=== PATIENT | female | born 1950 ===

== ENCOUNTER 2018-04-03 09:57 | Inpatient (IN) | payer MEDICARE ==
[2018-04-03 10:07] VITALS: BMI 24.1
[2018-04-03] MEDS ORDERED: Sodium Chloride 0.9% 1,000 ML IV STA (10:25)
--- NOTE | 2018-04-03 10:43 | ED PDOC ---
Arrival/HPI - General Historian: Patient - History of Present Illness Narrative History of Present Illness (Text): 04/03/18 10:28 67yo female with pmhx of hypertension and Asthma present with 3days history of right sided abdominal pain that is worse on the RLQ. States the pain became worse overnight. Reports associated nonbloody diarrhea. the last episode was this morning with nausea. Triage note noted dizziness, but patient states she is not dizzy at this time. states she came to ED for the pain. Her last colonoscopy was 3years ago and it was normal at that time. she denies vomiting, chest pain, SOB, diaphoresis, melena, hematemesis, urinary symptoms, headache, focal wea kness, any other complaint <Reji Owen A - Last Filed: 04/03/18 14:04> <Red Vo - Last Filed: 04/05/18 20:59> - General Chief Complaint: Abdominal Pain Time Seen by Provider: 04/03/18 10:25 Past Medical History - Provider Review Nursing Documentation Reviewed: Yes - Cardiac Hx Hypertension: Yes - Pulmonary Hx Asthma: Yes - Psychiatric Hx Substance Use: No - Anesthesia Hx Anesthesia: No Hx Anesthesia Reactions: No Hx Malignant Hyperthermia: No <Reji Owen A - Last Filed: 04/03/18 14:04> Family/Social History - Physician Review Nursing Documentation Reviewed: Yes Family/Social History: Unknown Family HX Smoking Status: Never Smoked Hx Alcohol Use: No Hx Substance Use: No <Reji Owen A - Last Filed: 04/03/18 14:04> Allergies/Home Meds <Reji Owen A - Last Filed: 04/03/18 14:04> <Red Vo - Last Filed: 04/05/18 20:59> Allergies/Adverse Reactions: Allergies Penicillins Allergy (Verified 04/04/18 20:45) SWELLING Review of Systems - Physician Review All systems were reviewed & negative as marked: Yes - Review of Systems Constitutional: Normal Eyes: Normal ENT: Normal Respiratory: Normal Cardiovascular: Normal Gastrointestinal: Abdominal Pain, Diarrhea, Nausea. absent: Constipation, Vomiting, Hematochezia, Hematemesis Genitourinary Female: Normal Musculoskeletal: Normal Skin: Normal Neurological: Normal Endocrine: Normal Hemo/Lymphatic: Normal Psychiatric: Normal <Reji Owen A - Last Filed: 04/03/18 14:04> Physical Exam Vital Signs Reviewed: Yes Vital Signs Temp Pulse Resp BP Pulse Ox 04/03/18 10:06 98.2 F 89 18 145/79 98 Temperature: Afebrile Blood Pressure: Normal Pulse: Regular Respiratory Rate: Normal Appearance: Positive for: Well-Appearing, Non-Toxic, Comfortable Pain Distress: None Mental Status: Positive for: Alert and Oriented X 3 - Systems Exam Head: Present: Atraumatic, Normocephalic Pupils: Present: PERRL Extroacular Muscles: Present: EOMI Conjunctiva: Present: Normal Mouth: Present: Moist Mucous Membranes Neck: Present: Normal Range of Motion Respiratory/Chest: Present: Clear to Auscultation, Good Air Exchange. No: R espiratory Distress, Accessory Muscle Use Cardiovascular: Present: Regular Rate and Rhythm, Normal S1, S2. No: Murmurs Abdomen: Present: Tenderness (RLQ), Normal Bowel Sounds, Guarding (Voluntary), Other (soft). No: Distention, Peritoneal Signs, Rebound, McBurney's Point Tender, Rovsing's Sign Present Back: Present: Normal Inspection Upper Extremity: Present: Normal Inspection. No: Cyanosis, Edema Lower Extremity: Present: Normal Inspection. No: Edema Neurological: Present: GCS=15, CN II-XII Intact, Speech Normal Skin: Present: Warm, Dry, Normal Color. No: Rashes Psychiatric: Present: Alert, Oriented x 3, Normal Insight, Normal Concentration <Diru,Happiness A - Last Filed: 04/03/18 14:04> Vital Signs Temp Pulse Resp BP Pulse Ox 04/03/18 15:01 82 18 147/66 98 04/03/18 14:36 18 04/03/18 12:23 98.0 F 99 H 18 139/83 99 04/03/18 10:06 98.2 F 89 18 145/79 98 <Red Vo - Last Filed: 04/05/18 20:59> Medical Decision Making ED Course and Treatment: 04/03/18 10:51 67yo female in ED with 3days history of Right sided abdominal pain with diarrhea and nausea. PT have RLQ tenderness on exam. Labs and CT will be ordered to r/o Obstruction Vs Colitis Vs diverticulitis Labs Abd/Plevis CT Briefran, Pepcid, 1L Ns EKG will reassess EKG NSR @ 85bpm. with normal interval and normal axis 04/03/18 14:04 Pt remain comfortable in ED. She was hydrated. Labs was all wnl. abdominal/Pelvic CT Early/incomplete small bowel obstruction suspected. dilated loops of small bowel identified in the pelvis beyond this the distal and terminal ileum are normal luminal caliber. Pt will be admitted secondary to the CT finding. Case was DW Dr. Nichole and she accepted pt to her service. requested Drs. Granados and Kristen consult Pt was placed on NPO. Result and plan was dW the pt and she agreed Case was DW the surgical territory manager Zabrina. she saw pt in ED. 04/03/18 14:07 - RAD Interpretation Radiology Orders: 04/03/18 10:26 ABD & PELVIS IV CONTRAST ONLY [CT] Stat <Diru,Happiness A - Last Filed: 04/03/18 14:04> - Lab Interpretations Microbiology Results: Microbiology Results 04/03/18 10:45 Urine,Clean Catch Urine Culture - Final No Growth (<1,000 CFU/ML) Lab Results: 04/03/18 10:45 04/03/18 11:30 Lab Results 04/03/18 11:30: Sodium 144, Potassium 3.9, Chloride 111 H, Carbon Dioxide 23, Anion Gap 13, BUN 20, Creatinine 0.6 L, Est GFR ( Amer) > 60, Est GFR (Non-Af Amer) > 60, Random Glucose 117 H, Calcium 9.1, Total Bilirubin 0.4, AST 18, ALT 24, Alkaline Phosphatase 71, Lactate Dehydrogenase 412, Total Creatine Kinase 44, Troponin I < 0.01, Total Protein 7.2, Albumin 4.0, Globulin 3.2, Albumin/Globulin Ratio 1.2, Amylase 70, Lipase 72 04/03/18 10:45: Urine Color Yellow, Urine Appearance Clear, Urine pH 6.0, Ur Specific [place] >= 1.030, Urine Protein Negative, Urine Glucose (UA) Negative, Urine Ketones Negative, Urine Blood Trace-intact H, Urine Nitrate Negative, Urine Bilirubin Negative, Urine Urobilinogen 0.2, Ur Leukocyte Esterase Small H, Urine RBC 0 - 2, Urine WBC 5 - 10, Ur Epithelial Cells 1 - 3, Urine Bacteria Small 04/03/18 10:45: PT 11.9, INR 1.03, APTT 26.7 04/03/18 10:45: WBC 8.4, RBC 4.83, Hgb 14.5, Hct 44.3, MCV 91.7, MCH 30.0, MCHC 32.7, RDW 13.4, Plt Count 212, MPV 12.8 H, Gran % 86.2 H, Lymph % (Auto) 7.7 L, [place] % (Auto) 4.4, Eos % (Auto) 1.7, Baso % (Auto) 0.0, Gran # 7.25 H, Lymph # (Auto) 0.7 L, [place] # (Auto) 0.4, Eos # (Auto) 0.1, Baso # (Auto) 0.00 - RAD Interpretation Radiology Orders: 04/03/18 10:26 ABD & PELVIS IV CONTRAST ONLY [CT] Stat - Medication Orders Current Medication Orders: Discontinued Medications Acetaminophen (Tylenol 325mg Tab) 650 mg PO Q6H PRN PRN Reason: Headache Last Admin: 04/03/18 16:47 Dose: 650 mg [facility] Pain/Vitals Document 04/03/18 16:47 MV (Rec: 04/03/18 16:47 MV [id number]) Pain Reassessment Is This A Pain ReAssessment? No Re-Assess: [facility] Pain/Vitals Document 04/03/18 17:47 SG (Rec: 04/03/18 20:12 SG [id number]) Pain Reassessment Is This A Pain ReAssessment? Yes Sleep Is patient sleeping during reassessment? No Presence of Pain Presence of Pain No Famotidine (Pepcid) 20 mg IVP STAT STA Stop: 04/03/18 10:26 Last Admin: 04/03/18 10:44 Dose: 20 mg IVP Administration Document 04/03/18 10:44 EQ (Rec: 04/03/18 10:44 EQ [id number]) Charges for Administration # of IVP Administrations 1 Heparin Sodium (Porcine) (Heparin) 5,000 units SC Q8 ZUNILDA; Protocol Last Admin: 04/05/18 15:33 Dose: 5,000 units Subcutaneous Administrations Document 04/05/18 15:33 GGM (Rec: 04/05/18 15:33 GGM [id number]) Injection Site MAR Injection Site Right Arm Charges for Administration # of Subcutaneous Administrations 1 Sodium Chloride (Sodium Chloride 0.9%) 1,000 mls @ 100 mls/hr IV .Q10H STA Stop: 04/03/18 20:24 Last Admin: 04/03/18 10:43 Dose: 100 mls/hr eMAR Start Stop Document 04/03/18 10:43 EQ (Rec: 04/03/18 10:43 EQ [id number]) Intravenous Solution Start Date 04/03/18 Start Time 10:43 Sodium Chloride (Sodium Chloride 0.9%) 1,000 mls @ 100 mls/hr IV .Q10H ZUNILDA Last Admin: 04/03/18 13:53 Dose: 100 mls/hr eMAR Start Stop Document 04/03/18 13:53 EQ (Rec: 04/03/18 13:53 EQ [id number]) Intravenous Solution Start Date 04/03/18 Start Time 13:53 Sodium Chloride (Sodium Chloride 0.9%) 1,000 mls @ 125 mls/hr IV .Q8H ZUNILDA Last Admin: 04/03/18 13:56 Dose: 125 mls/hr eMAR Start Stop Document 04/03/18 13:56 EQ (Rec: 04/03/18 13:56 EQ [id number]) Intravenous Solution Start Date 04/03/18 Start Time 13:56 Sodium Chloride (Sodium Chloride 0.9%) 1,000 mls @ 100 mls/hr IV .Q10H ZUNILDA Last Admin: 04/05/18 05:52 Dose: 100 mls/hr eMAR Start Stop Document 04/05/18 05:52 KTB (Rec: 04/05/18 05:53 KTB [id number]) Intravenous Solution Start Date 04/05/18 Start Time 05:53 Ciprofloxacin (Cipro 200mg/100ml D5w) 100 mls @ 67 mls/hr IVPB Q12 ZUNILDA; Protocol Stop: 04/03/18 23:30 Last Admin: 04/03/18 21:47 Dose: 67 mls/hr eMAR Start Stop Document 04/03/18 21:47 SG (Rec: 04/03/18 21:47 SG [id number]) Intravenous Solution Start Date 04/03/18 Start Time 21:47 End Date 04/03/18 End time 23:17 Total Infusion Time 90 Metronidazole (Flagyl) 500 mg in 100 mls @ 100 mls/hr IVPB Q8 ZUNILDA; Protocol Last Admin: 04/05/18 15:32 Dose: 100 mls/hr eMAR Start Stop Document 04/05/18 15:32 GG (Rec: 04/05/18 15:33 [id number]) Intravenous Solution Start Date 04/05/18 Start Time 15:32 End Date 04/05/18 End time 16:32 Total Infusion Time 60 Lactulose (Enulose) 30 gm PO ONCE ONE Stop: 04/05/18 11:03 Last Admin: 04/05/18 11:22 Dose: 30 gm Losartan Potassium (Cozaar) 100 mg PO DAILY [facility] Last Admin: 04/04/18 09:37 Dose: Not Given Non-Admin Reason: Pt wants to take at night Losartan Potassium (Cozaar) 100 mg PO DAILY [facility] Last Admin: 04/05/18 10:07 Dose: Not Given Non-Admin Reason: Patient Refused Meclizine HCl (Antivert) 12.5 mg PO Q8 [facility] Last Admin: 04/05/18 15:32 Dose: 12.5 mg Morphine Sulfate (Morphine) 4 mg IVP Q4H PRN PRN Reason: Pain, moderate (4-7) Last Admin: 04/04/18 09:38 Dose: 4 mg ADALGISA Pain Assessment Document 04/04/18 09:38 GG (Rec: 04/04/18 09:46 [id number]) Pain Reassessment Is this a pain reassessment? No Presence of Pain Presence of Pain Yes Pain Scale Used Protocol: PSCALES Pain Scale Used Numeric Location Pain Location Body Site Abdomen Description Intensity of Pain at present 7 Pain Behavior Grasping Site Facial Grimacing Alleviating Factors/Management Medication Techniques IVP Administration Document 04/04/18 09:38 GG (Rec: 04/04/18 09:46 [id number]) Charges for Administration # of IVP Administrations 1 Re-Assess: ADALGISA Pain Assessment Document 04/04/18 10:38 GG (Rec: 04/04/18 12:45 GG JENN) Pain Reassessment Is this a pain reassessment? Yes Sleep Is patient sleeping during reassessment? Yes Nitroglycerin (Nitro-Bid 2% Oint) 1 ea TOP Q4 PRN PRN Reason: Hypertension Ondansetron HCl (Zofran Inj) 4 mg IVP STAT STA Stop: 04/03/18 10:26 Last Admin: 04/03/18 10:44 Dose: 4 mg IVP Administration Document 04/03/18 10:44 EQ (Rec: 04/03/18 10:44 EQ [id number]) Charges for Administration # of IVP Administrations 1 Ondansetron HCl (Zofran Inj) 4 mg IVP Q4H PRN PRN Reason: Nausea/Vomiting Last Admin: 04/03/18 18:11 Dose: 4 mg IVP Administration Document 04/03/18 18:11 MV (Rec: 04/03/18 18:11 MV [id number]) Charges for Administration # of IVP Administrations 1 Ondansetron HCl (Zofran Inj) 4 mg IVP Q6H PRN PRN Reason: Nausea/Vomiting Last Admin: 04/04/18 16:23 Dose: 4 mg IVP Administration Document 04/04/18 16:23 GGM (Rec: 04/04/18 16:23 GGM [id number]) Charges for Administration # of IVP Administrations 1 Ondansetron HCl (Zofran Inj) 4 mg IVP Q6H PRN PRN Reason: Nausea/Vomiting Pantoprazole Sodium (Protonix Inj) 40 mg IVP DAILY [facility] Last Admin: 04/05/18 09:54 Dose: 40 mg IVP Administration Document 04/05/18 09:54 GGM (Rec: 04/05/18 09:57 GGM [id number]) Charges for Administration # of IVP Administrations 1 Potassium Chloride (Potassium Chloride Oral Soln) 20 meq PO STAT STA Stop: 04/04/18 12:26 Last Admin: 04/04/18 13:08 Dose: 20 meq Potassium Chloride (K-Dur 20 Meq Er Tab) 40 meq PO ONCE ONE Stop: 04/04/18 15:16 Last Admin: 04/04/18 16:24 Dose: 40 meq <Red Vo - Last Filed: 04/05/18 20:59> - PA / RESIDENT MEDICAL OFFICER / Resident Statement / has reviewed & agrees with the documentation as recorded. <Red Vo - Last Filed: 04/05/18 20:59> Disposition/Present on Arrival - Present on Arrival Any Indicators Present on Arrival: No History of DVT/PE: No History of Uncontrolled Diabetes: No Urinary Catheter: No History of Decub. Ulcer: No History Surgical Site Infection Following: None - Disposition Have Diagnosis and Disposition been Completed?: Yes Disposition Time: 13:15 Patient Plan: Admission <Reji Owen - Last Filed: 04/03/18 14:04> <Red Vo - Last Filed: 04/05/18 20:59> - Disposition Diagnosis: Small bowel obstruction Disposition: HOSPITALIZED Condition: STABLE
[2018-04-03 11:05] LABS: EOS # 0.1 (0.0-0.7); EOS % 1.7 % (1.5-5.0); GRAN # 7.25 (1.4-6.5); GRAN % 86.2 % (50.0-68.0); HEMOGLOBIN 14.5 g/dL (12.0-16.0); LYMPH # 0.7 (1.2-3.4); LYMPH % 7.7 % (22.0-35.0); MEAN CELL VOLUME 91.7 fl (80.0-105.0); MEAN CORPUSCULAR HGB CONC 32.7 g/dl (31.0-37.0); MEAN PLATELET VOLUME 12.8 fl (7.0-11.0); MONO # 0.4 (0.1-0.6); MONO % 4.4 % (1.0-6.0); RBC 4.83 10^6/uL (3.5-6.1); RED CELL DISTRIBUTION WIDTH 13.4 % (11.5-14.5); URINE BILIRUBIN NEGATIVE (NEGATIVE); URINE BLOOD TRACE-INTACT (NEGATIVE); URINE GLUCOSE (UA) NEGATIVE (NEGATIVE); URINE LEUKOCYTE ESTERASE SMALL Leu/uL (NEGATIVE); URINE PROTEIN NEGATIVE mg/dL (<30 mg/dL); URINE UROBILINOGEN 0.2 E.U./dL (<1 E.U./dL); WHITE BLOOD COUNT 8.4 10^3/ul (4.5-11.0)
[2018-04-03 11:06] LABS: URINE APPEARANCE CLEAR (CLEAR); URINE COLOR YELLOW (YELLOW)
[2018-04-03 11:11] LABS: INR 1.03; PARTIAL THROMBOPLASTIN TIME 26.7 Seconds (25.1-36.5); PROTHROMBIN TIME 11.9 SECONDS (9.4-12.5); URINE RBC 0 - 2 /hpf (0-2)
[2018-04-03 11:12] LABS: URINE BACTERIA SMALL (NEG)
[2018-04-03 11:53] LABS: ALB/GLOB RATIO 1.2 (1.1-1.8); ALT/SGPT 24 U/L (7-56); AMYLASE 70 U/L (35-125); AST/SGOT 18 U/L (14-36); BLOOD UREA NITROGEN 20 mg/dL (7-21); CALCIUM 9.1 mg/dL (8.4-10.5); GFR NON-AFRICAN AMERICAN > 60; LIPASE 72 U/L (23-300)
[2018-04-03] MEDS ORDERED: Iohexol 350 MG/100 ML VIAL ONE (12:00)
[2018-04-03 12:04] LABS: TROPONIN I < 0.01 ng/mL
--- NOTE | 2018-04-03 12:53 | CT ---
Date of service: 04/03/2018 PROCEDURE: CT Abdomen and Pelvis with contrast HISTORY: RLQ abdominal pain Relevant surgical history: Hysterectomy COMPARISON: None. TECHNIQUE: Intravenous contrast dose: 100 cc Omnipaque 350. Radiation dose: Total exam DLP = inf_radiation_dlp mGy-cm. This CT exam was performed using one or more of the following dose reduction techniques: Automated exposure control, adjustment of the mA and/or kV according to patient size, and/or use of iterative reconstruction technique. FINDINGS: LOWER THORAX: Unremarkable. LIVER: Unremarkable. No gross lesion or ductal dilatation. GALLBLADDER AND BILE DUCTS: Unremarkable. PANCREAS: Unremarkable. No gross lesion or ductal dilatation. SPLEEN: Unremarkable. ADRENALS: Unremarkable. No mass. KIDNEYS AND URETERS: Unremarkable. No hydronephrosis. No solid mass. VASCULATURE: Unremarkable. No aortic aneurysm. No atherosclerotic calcification or mural plaque present. BOWEL: Proximally dilated small bowel. Distal loops of small bowel are normal luminal caliber. The findings suggest earlier incomplete small bowel obstruction likely within the pelvis. The patient has a remote history hysterectomy. Conceivably adhesions could be wrist producing these findings. APPENDIX: A normal appendix is visualized. PERITONEUM: Unremarkable. No free fluid. No free air. LYMPH NODES: Unremarkable. No enlarged lymph nodes. BLADDER: Unremarkable. REPRODUCTIVE: Prior hysterectomy. BONES: No acute fracture. OTHER FINDINGS: None. IMPRESSION: Early/incomplete small bowel obstruction suspected. Dilated loops of small bowel identified in the pelvis beyond this the distal and terminal ileum are normal luminal caliber. Communication of results: I discussed findings directly with the physician in recruitment and outreach assistant involved in the care and management this patient at 12:48.
--- NOTE | 2018-04-03 13:40 | CP.PCM.CON ---
History of Present Illness - History of Present Illness History of Present Illness: General Surgery consult note for Dr. Granados consulted for SBO Patient is a 67 yr old female with PMH HTN, asthma presenting to [facility] with RLQ abdominal pain since Wednesday associated with diarrhea beginning midday yesterday and nausea beginning this am. Her last normal BM was approximately 0930 yesterday. She otherwise denies f/c, CP, dizziness, SOB, hematochezia, coffee grounds emesis, melena, dysuria. Her last colonoscopy was 3 yrs ago and was normal. She denies having had any strange or new foods. PMH: HTN, Asthma PSH: hysterctomy (1992) All: knda PMD: letha Social: denies Review of Systems - Review of Systems All systems: reviewed and no additional remarkable complaints except Review of Systems: as per HPI Past Patient History - Past Social History Smoking Status: Never Smoked - CARDIAC Hx Hypertension: Yes - PULMONARY Hx Asthma: Yes - PSYCHIATRIC Hx Substance Use: No - ANESTHESIA Hx Anesthesia: No Hx Anesthesia Reactions: No Hx Malignant Hyperthermia: No Meds Allergies/Adverse Reactions: Allergies Allergy/AdvReac Type Severity Reaction Status Date / Time Penicillins Allergy SWELLING Verified 04/04/18 20:45 - Medications Medications: Current Medications Sodium Chloride (Sodium Chloride 0.9%) 1,000 mls @ 100 mls/hr IV .Q10H STA Stop: 04/03/18 20:24 Last Admin: 04/03/18 10:43 Dose: 100 mls/hr Physical Exam - Constitutional Appears: Well, Non-toxic, No Acute Distress - Head Exam Head Exam: ATRAUMATIC, NORMOCEPHALIC - Eye Exam Eye Exam: EOMI - ENT Exam ENT Exam: Mucous Membranes Moist - Respiratory Exam Respiratory Exam: NORMAL BREATHING PATTERN - Cardiovascular Exam Cardiovascular Exam: REGULAR RHYTHM - GI/Abdominal Exam GI & Abdominal Exam: Guarding (mild RLQ tenderness with deep palpation), Soft, Tenderness (mild RLQ). absent: Distended, Firm, Rebound, Rigid - Extremities Exam Extremities exam: Positive for: pedal pulses present. Negative for: calf tenderness, pedal edema - Neurological Exam Neurological exam: Alert, Oriented x3 - Psychiatric Exam Psychiatric exam: Normal Affect, Normal Mood - Skin Skin Exam: Dry, Intact, Normal Color, Warm Results - Vital Signs Recent Vital Signs: Last Vital Signs Temp 98.0 F 04/03/18 12:23 Pulse 99 H 04/03/18 12:23 Resp 18 04/03/18 12:23 BP 139/83 04/03/18 12:23 Pulse Ox 99 04/03/18 12:23 - Labs Result Diagrams: 04/05/18 06:30 04/05/18 06:30 Labs: Laboratory Results - last 24 hr 04/03/18 04/03/18 04/03/18 10:45 10:45 10:45 WBC 8.4 RBC 4.83 Hgb 14.5 Hct 44.3 MCV 91.7 MCH 30.0 MCHC 32.7 RDW 13.4 Plt Count 212 MPV 12.8 H Gran % 86.2 H Lymph % (Auto) 7.7 L [place] % (Auto) 4.4 Eos % (Auto) 1.7 Baso % (Auto) 0.0 Gran # 7.25 H Lymph # (Auto) 0.7 L [place] # (Auto) 0.4 Eos # (Auto) 0.1 Baso # (Auto) 0.00 PT 11.9 INR 1.03 APTT 26.7 Sodium Potassium Chloride Carbon Dioxide Anion Gap BUN Creatinine Est GFR ( Amer) Est GFR (Non-Af Amer) Random Glucose Calcium Total Bilirubin AST ALT Alkaline Phosphatase Lactate Dehydrogenase Total Creatine Kinase Troponin I Total Protein Albumin Globulin Albumin/Globulin Ratio Amylase Lipase Urine Color Yellow Urine Appearance Clear Urine pH 6.0 Ur Specific [place] >= 1.030 Urine Protein Negative Urine Glucose (UA) Negative Urine Ketones Negative Urine Blood Trace-intact H Urine Nitrate Negative Urine Bilirubin Negative Urine Urobilinogen 0.2 Ur Leukocyte Esterase Small H Urine RBC 0 - 2 Urine WBC 5 - 10 Ur Epithelial Cells 1 - 3 Urine Bacteria Small 04/03/18 11:30 WBC RBC Hgb Hct MCV MCH MCHC RDW Plt Count MPV Gran % Lymph % (Auto) [place] % (Auto) Eos % (Auto) Baso % (Auto) Gran # Lymph # (Auto) [place] # (Auto) Eos # (Auto) Baso # (Auto) PT INR APTT Sodium 144 Potassium 3.9 Chloride 111 H Carbon Dioxide 23 Anion Gap 13 BUN 20 Creatinine 0.6 L Est GFR ( Amer) > 60 Est GFR (Non-Af Amer) > 60 Random Glucose 117 H Calcium 9.1 Total Bilirubin 0.4 AST 18 ALT 24 Alkaline Phosphatase 71 Lactate Dehydrogenase 412 Total Creatine Kinase 44 Troponin I < 0.01 Total Protein 7.2 Albumin 4.0 Globulin 3.2 Albumin/Globulin Ratio 1.2 Amylase 70 Lipase 72 Urine Color Urine Appearance Urine pH Ur Specific [place] Urine Protein Urine Glucose (UA) Urine Ketones Urine Blood Urine Nitrate Urine Bilirubin Urine Urobilinogen Ur Leukocyte Esterase Urine RBC Urine WBC Ur Epithelial Cells Urine Bacteria Assessment & Plan - Assessment and Plan (Free Text) Assessment: 67 yr old female with early SBO Plan: NPO IVF pain control will consider NGT if patient begins vomiting begin flagyl protonix and SCD/heparin for prophylaxis d/w Dr. Granados, all further recs per him Zabrina Escobar, PGY 1 - Date & Time Date: 04/03/18 Time: 13:30
[2018-04-03 13:41] LABS: VENOUS BLOOD GAS BASE EXCESS -1.3 mmol/L (0.0-2.0); VENOUS BLOOD GAS PO2 37 mm/Hg (30-55); VENOUS BLOOD PH 7.34 (7.32-7.43)
[2018-04-03] MEDS ORDERED: Sodium Chloride 0.9% 1,000 ML IV SCH ×2 (13:45→13:51)
[2018-04-03] MEDS ORDERED: Nitroglycerin 2% Ointment Foilpak UD TOP PRN (16:20)
[2018-04-03] MEDS: metroNIDAZOLE IV 500 mg/100 ml 500 MG/100 ML BAG IVPB SCH ×2 (17:54→21:47)
[2018-04-03] MEDS: Morphine 4 mg/ml ISec IVP PRN (18:12)
[2018-04-03] MEDS ORDERED: Ciprofloxacin 200mg/100ml D5W 100 ML IVPB SCH (22:00)
--- NOTE | 2018-04-03 22:48 | CARD ---
APPROVED REPORT Date of service: 04/03/2018 EKG Measurement Heart [id number] <Conclusion> Normal sinus rhythm Minimal voltage criteria for LVH, may be normal variant Borderline ECG
[2018-04-04] MEDS: metroNIDAZOLE IV 500 mg/100 ml 500 MG/100 ML BAG IVPB SCH ×3 (05:00→21:59)
[2018-04-04] MEDS: Sodium Chloride 0.9% 1,000 ML IV SCH ×2 (05:16→17:41)
[2018-04-04 06:57] LABS: ALB/GLOB RATIO 1.2 (1.1-1.8); ALBUMIN 3.4 g/dL (3.0-4.8); ALT/SGPT 23 U/L (7-56); AST/SGOT 18 U/L (14-36); BLOOD UREA NITROGEN 14 mg/dL (7-21); CALCIUM 8.3 mg/dL (8.4-10.5); GFR NON-AFRICAN AMERICAN > 60
[2018-04-04 07:04] LABS: BASO # 0.01 K/mm3 (0.0-2.0); BASO % 0.2 % (0.0-3.0); EOS # 0.2 (0.0-0.7); EOS % 4.8 % (1.5-5.0); GRAN # 2.27 (1.4-6.5); GRAN % 47.8 % (50.0-68.0); LYMPH # 1.9 (1.2-3.4); LYMPH % 39.8 % (22.0-35.0); MEAN CELL VOLUME 91.9 fl (80.0-105.0); MEAN CORPUSCULAR HEMOGLOBIN 28.9 pg (25.0-35.0); MEAN CORPUSCULAR HGB CONC 31.5 g/dl (31.0-37.0); MEAN PLATELET VOLUME 12.1 fl (7.0-11.0); MONO # 0.4 (0.1-0.6); MONO % 7.4 % (1.0-6.0); RBC 4.05 10^6/uL (3.5-6.1); RED CELL DISTRIBUTION WIDTH 13.3 % (11.5-14.5); WHITE BLOOD COUNT 4.8 10^3/ul (4.5-11.0)
[2018-04-04 07:14] LABS: HEMOGLOBIN 11.7 g/dL (12.0-16.0)
--- NOTE | 2018-04-04 09:16 | CP.PCM.CON ---
<ElenaSemaj R - Last Filed: 04/04/18 11:42> History of Present Illness - History of Present Illness History of Present Illness: PGY-2 GI consult note for Dr Peterson Mrs Pacheco is a 67 year old female with a PMHx of HTN and asthma that presented to the ED with right lower quadrant abdominal pain that began 3 days ago. She says the pain was gradually worsened, forcing her to come to the ER. She reports the pain as crampy and sharp. She reports "a few" instances of diarrhea that were non-bloody. She endorses nausea but denies emesis. Her oral intake has decreased in the last few days due to the abdominal discomfort. She was in [place] for 2 weeks and returned to [place] 6 days ago. She denies being sick on her trip. She denies fevers. She states she normally has a bowel movemen t 2x per day which is normal appearing. PMHx: HTN, Asthma PSHx: Hysterectomy 1992; Last colonoscopy was 3 yrs ago and was normal Allergies: NKA SocialHx: Denies tobacco hx, denies alcohol FamHx: Mother had cancer "tumor on the ribs"; Father healthy PMD: Dr Nichole Review of Systems - Constitutional Constitutional: absent: Chills, Fever - EENT Eyes: absent: Change in Vision - Cardiovascular Cardiovascular: absent: Chest Pain - Respiratory Respiratory: absent: Cough, Dyspnea - Gastrointestinal Gastrointestinal: Abdominal Pain, Bloating, Change in Bowel Habits, Change in St ool Character, Cramping, Diarrhea. absent: Coffee Ground Emesis, Constipation, Vomiting - Genitourinary Genitourinary: absent: Dysuria - Musculoskeletal Musculoskeletal: Back Pain - Integumentary Integumentary: absent: Bleeding Lesions - Neurological Neurological: absent: Dizziness Past Patient History - Past Social History Smoking Status: Never Smoked - CARDIAC Hx Hypertension: Yes - PULMONARY Hx Asthma: Yes - MUSCULOSKELETAL/RHEUMATOLOGICAL Hx Falls: No - PSYCHIATRIC Hx Substance Use: No - ANESTHESIA Hx Anesthesia: No Hx Anesthesia Reactions: No Hx Malignant Hyperthermia: No Meds Allergies/Adverse Reactions: Allergies Allergy/AdvReac Type Severity Reaction Status Date / Time Penicillins Allergy SWELLING Verified 04/04/18 20:45 - Medications Medications: Current Medications Acetaminophen (Tylenol 325mg Tab) 650 mg PO Q6H PRN PRN Reason: Headache Last Admin: 04/03/18 16:47 Dose: 650 mg Heparin Sodium (Porcine) (Heparin) 5,000 units SC Q8 [facility]; Protocol Last Admin: 04/04/18 05:16 Dose: Not Given Sodium Chloride (Sodium Chloride 0.9%) 1,000 mls @ 100 mls/hr IV .Q10H [facility] Last Admin: 04/04/18 05:16 Dose: Not Given Metronidazole (Flagyl) 500 mg in 100 mls @ 100 mls/hr IVPB Q8 [facility]; Protocol Last Admin: 04/04/18 05:00 Dose: 100 mls/hr Losartan Potassium (Cozaar) 100 mg PO DAILY [facility] Last Admin: 04/03/18 16:47 Dose: 100 mg Morphine Sulfate (Morphine) 4 mg IVP Q4H PRN PRN Reason: Pain, moderate (4-7) Last Admin: 04/03/18 18:12 Dose: 4 mg Nitroglycerin (Nitro-Bid 2% Oint) 1 ea TOP Q4 PRN PRN Reason: Hypertension Ondansetron HCl (Zofran Inj) 4 mg IVP Q4H PRN PRN Reason: Nausea/Vomiting Last Admin: 04/03/18 18:11 Dose: 4 mg Pantoprazole Sodium (Protonix Inj) 40 mg IVP DAILY [facility] Physical Exam - Constitutional Appears: Well, No Acute Distress - Head Exam Head Exam: ATRAUMATIC, NORMAL INSPECTION - Eye Exam Eye Exam: EOMI, Normal appearance, PERRL - ENT Exam ENT Exam: Mucous Membranes Moist - Neck Exam Neck exam: Positive for: Normal Inspection - Respiratory Exam Respiratory Exam: Clear to Auscultation Bilateral, NORMAL BREATHING PATTERN. absent: Rales, Rhonchi, Wheezes - Cardiovascular Exam Cardiovascular Exam: REGULAR RHYTHM, +S1, +S2. absent: Tachycardia, JVD, Systolic Murmur - GI/Abdominal Exam GI & Abdominal Exam: Hyperactive Bowel Sounds, Soft. absent: Distended, Firm, Guarding, Rebound, Tenderness - Neurological Exam Neurological exam: Alert, Oriented x3 - Psychiatric Exam Psychiatric exam: Normal Affect, Normal Mood - Skin Skin Exam: Normal Color, Warm Results - Vital Signs Recent Vital Signs: Last Vital Signs Temp 97.3 F L 04/04/18 08:17 Pulse 76 04/04/18 08:17 Resp 20 04/04/18 08:17 BP 135/73 04/04/18 08:17 Pulse Ox 97 04/04/18 08:17 - Labs Result Diagrams: 04/04/18 06:10 04/04/18 06:10 Labs: Laboratory Results - last 24 hr 04/03/18 04/03/18 04/03/18 10:45 10:45 10:45 WBC 8.4 RBC 4.83 Hgb 14.5 Hct 44.3 MCV 91.7 MCH 30.0 MCHC 32.7 RDW 13.4 Plt Count 212 MPV 12.8 H Gran % 86.2 H Lymph % (Auto) 7.7 L [place] % (Auto) 4.4 Eos % (Auto) 1.7 Baso % (Auto) 0.0 Gran # 7.25 H Lymph # (Auto) 0.7 L [place] # (Auto) 0.4 Eos # (Auto) 0.1 Baso # (Auto) 0.00 PT 11.9 INR 1.03 APTT 26.7 pO2 VBG pH VBG pCO2 VBG HCO3 VBG Total CO2 VBG O2 Sat (Calc) VBG Base Excess VBG Potassium Glucose Lactate FiO2 Sodium Potassium Chloride Carbon Dioxide Anion Gap BUN Creatinine Est GFR ( Amer) Est GFR (Non-Af Amer) Random Glucose Calcium Phosphorus Magnesium Total Bilirubin AST ALT Alkaline Phosphatase Lactate Dehydrogenase Total Creatine Kinase Troponin I Total Protein Albumin Globulin Albumin/Globulin Ratio Amylase Lipase Venous Blood Potassium Urine Color Yellow Urine Appearance Clear Urine pH 6.0 Ur Specific Wells >= 1.030 Urine Protein Negative Urine Glucose (UA) Negative Urine Ketones Negative Urine Blood Trace-intact H Urine Nitrate Negative Urine Bilirubin Negative Urine Urobilinogen 0.2 Ur Leukocyte Esterase Small H Urine RBC 0 - 2 Urine WBC 5 - 10 Ur Epithelial Cells 1 - 3 Urine Bacteria Small 04/03/18 04/03/18 04/04/18 11:30 13:30 06:10 WBC 4.8 D RBC 4.05 Hgb 11.7 L D Hct 37.2 MCV 91.9 MCH 28.9 MCHC 31.5 RDW 13.3 Plt Count 137 MPV 12.1 H Gran % 47.8 L Lymph % (Auto) 39.8 H Chicot % (Auto) 7.4 H Eos % (Auto) 4.8 Baso % (Auto) 0.2 Gran # 2.27 Lymph # (Auto) 1.9 Chicot # (Auto) 0.4 Eos # (Auto) 0.2 Baso # (Auto) 0.01 PT INR APTT pO2 37 VBG pH 7.34 VBG pCO2 46.0 VBG HCO3 24.8 VBG Total CO2 26.2 VBG O2 Sat (Calc) 75.8 H VBG Base Excess -1.3 L VBG Potassium 3.9 Glucose 102 Lactate 0.9 FiO2 21.0 Sodium 144 140.0 Potassium 3.9 Chloride 111 H 108.0 H Carbon Dioxide 23 Anion Gap 13 BUN 20 Creatinine 0.6 L Est GFR ( Amer) > 60 Est GFR (Non-Af Amer) > 60 Random Glucose 117 H Calcium 9.1 Phosphorus Magnesium Total Bilirubin 0.4 AST 18 ALT 24 Alkaline Phosphatase 71 Lactate Dehydrogenase 412 Total Creatine Kinase 44 Troponin I < 0.01 Total Protein 7.2 Albumin 4.0 Globulin 3.2 Albumin/Globulin Ratio 1.2 Amylase 70 Lipase 72 Venous Blood Potassium 3.9 Urine Color Urine Appearance Urine pH Ur Specific Wells Urine Protein Urine Glucose (UA) Urine Ketones Urine Blood Urine Nitrate Urine Bilirubin Urine Urobilinogen Ur Leukocyte Esterase Urine RBC Urine WBC Ur Epithelial Cells Urine Bacteria 04/04/18 06:10 WBC RBC Hgb Hct MCV MCH MCHC RDW Plt Count MPV Gran % Lymph % (Auto) Chicot % (Auto) Eos % (Auto) Baso % (Auto) Gran # Lymph # (Auto) Chicot # (Auto) Eos # (Auto) Baso # (Auto) PT INR APTT pO2 VBG pH VBG pCO2 VBG HCO3 VBG Total CO2 VBG O2 Sat (Calc) VBG Base Excess VBG Potassium Glucose Lactate FiO2 Sodium 141 Potassium 3.4 L Chloride 110 H Carbon Dioxide 23 Anion Gap 11 BUN 14 Creatinine 0.7 Est GFR ( Amer) > 60 Est GFR (Non-Af Amer) > 60 Random Glucose 92 Calcium 8.3 L Phosphorus 3.2 Magnesium 1.8 Total Bilirubin 0.3 AST 18 ALT 23 Alkaline Phosphatase 64 Lactate Dehydrogenase Total Creatine Kinase Troponin I Total Protein 6.3 Albumin 3.4 Globulin 2.9 Albumin/Globulin Ratio 1.2 Amylase Lipase Venous Blood Potassium Urine Color Urine Appearance Urine pH Ur Specific Wells Urine Protein Urine Glucose (UA) Urine Ketones Urine Blood Urine Nitrate Urine Bilirubin Urine Urobilinogen Ur Leukocyte Esterase Urine RBC Urine WBC Ur Epithelial Cells Urine Bacteria Assessment & Plan - Assessment and Plan (Free Text) Plan: 67 year old female with a PMHx of HTN and asthma admitted for early small bowel obstruction: Small Bowel Obstruction -vs enteritis (patient recently in [place] and returned 6 days ago) -SBO 2/2 to adhesions from remote hysterectomy? -CT abd/pelvis w/ iv contrast: * Early/incomplete small bowel obstruction suspected. Dilated loops of small bowel identified in the pelvis beyond this the distal and terminal ileum are normal luminal caliber. * Per Dr Peterson's read - transition point suspected on series 3 image 92 -Gen Surgery on board, Dr Granados * Advanced diet to CLD * clinically patient not obstructed, can perform small bowel series to further r/o obstruction however will have to be postponed until 04/05 due to retained contrast in the abdomen -Agree with IVF and pain control and zofran for nausea -Agree with flagyl 500mg ivpb q8h -Can consider NGT if patient has emesis -F/U stool studies -If symptoms worsen can consider CT abdomen with PO contrast Management as per Dr Peterson. <Murphy Peterson V - Last Filed: 04/04/18 23:28> Meds - Medications Medications: Current Medications Acetaminophen (Tylenol 325mg Tab) 650 mg PO Q6H PRN PRN Reason: Headache Last Admin: 04/03/18 16:47 Dose: 650 mg Heparin Sodium (Porcine) (Heparin) 5,000 units SC Q8 [facility]; Protocol Last Admin: 04/04/18 21:58 Dose: 5,000 units Sodium Chloride (Sodium Chloride 0.9%) 1,000 mls @ 100 mls/hr IV .Q10H [facility] Last Admin: 04/04/18 17:41 Dose: 100 mls/hr Metronidazole (Flagyl) 500 mg in 100 mls @ 100 mls/hr IVPB Q8 [facility]; Protocol Last Admin: 04/04/18 21:59 Dose: 100 mls/hr Losartan Potassium (Cozaar) 100 mg PO DAILY [facility] Last Admin: 04/04/18 20:43 Dose: 100 mg Meclizine HCl (Antivert) 12.5 mg PO Q8 [facility] Last Admin: 04/04/18 22:00 Dose: 12.5 mg Nitroglycerin (Nitro-Bid 2% Oint) 1 ea TOP Q4 PRN PRN Reason: Hypertension Ondansetron HCl (Zofran Inj) 4 mg IVP Q6H PRN PRN Reason: Nausea/Vomiting Pantoprazole Sodium (Protonix Inj) 40 mg IVP DAILY [facility] Last Admin: 04/04/18 09:38 Dose: 40 mg Results - Vital Signs Recent Vital Signs: Last Vital Signs Temp 97.9 F 04/04/18 15:52 Pulse 70 04/04/18 15:52 Resp 19 04/04/18 15:52 BP 140/74 04/04/18 15:52 Pulse Ox 98 04/04/18 15:52 - Labs Result Diagrams: 04/04/18 06:10 04/04/18 06:10 Labs: Laboratory Results - last 24 hr 04/04/18 04/04/18 06:10 06:10 WBC 4.8 D RBC 4.05 Hgb 11.7 L D Hct 37.2 MCV 91.9 MCH 28.9 MCHC 31.5 RDW 13.3 Plt Count 137 MPV 12.1 H Gran % 47.8 L Lymph % (Auto) 39.8 H Chicot % (Auto) 7.4 H Eos % (Auto) 4.8 Baso % (Auto) 0.2 Gran # 2.27 Lymph # (Auto) 1.9 Chicot # (Auto) 0.4 Eos # (Auto) 0.2 Baso # (Auto) 0.01 Sodium 141 Potassium 3.4 L Chloride 110 H Carbon Dioxide 23 Anion Gap 11 BUN 14 Creatinine 0.7 Est GFR ( Amer) > 60 Est GFR (Non-Af Amer) > 60 Random Glucose 92 Calcium 8.3 L Phosphorus 3.2 Magnesium 1.8 Total Bilirubin 0.3 AST 18 ALT 23 Alkaline Phosphatase 64 Total Protein 6.3 Albumin 3.4 Globulin 2.9 Albumin/Globulin Ratio 1.2 Attending/Attestation - Attestation I have personally seen and examined this patient.: Yes I have fully participated in the care of the patient.: Yes I have reviewed all pertinent clinical information: Yes Notes (Text): This is an addendum to GI consult report dictated by the Technology Solutions Architect.The patient was seen and evaluated earlier. Medical records, lab studies, imagings were reviewed. Last 24 hours events reviewed. Agreed with the above treatment plan as outlined in Technology Solutions Architect 's notes with the addition of the following 65 year old patient admitted with partial small bowl obstruction clinically improving on examination abdomen soft mild tenderness on deep palpation CT scan was reviewed Other differential diagnosis to consider is gastroenteritis Complete the antibiotics course Followup hb Slowly advance the diet as tolerated if worsening of the symptoms or reoccurrence then consider MRE or CTE 04/04/18 23:28
[2018-04-04] MEDS: Morphine 4 mg/ml ISec IVP PRN (09:38)
--- NOTE | 2018-04-04 10:25 | CP.PCM.PN ---
Subjective - Date & Time of Evaluation Date of Evaluation: 04/04/18 Time of Evaluation: :22 - Subjective Subjective: Surgery: Dr. Granados Patient symptoms improved this am. With mild abdominal pain, denies n/v/f/c. Reports flatus. Denies diarrhea continuation. Feels hungry. Objective - Vital Signs/Intake and Output Vital Signs (last 24 hours): Temp Pulse Resp BP Pulse Ox 97.3 F L 76 20 135/73 97 04/04/18 08:17 04/04/18 08:17 04/04/18 08:17 04/04/18 08:17 04/04/18 08:17 - Medications Medications: Current Medications Acetaminophen (Tylenol 325mg Tab) 650 mg PO Q6H PRN PRN Reason: Headache Last Admin: 04/03/18 16:47 Dose: 650 mg Heparin Sodium (Porcine) (Heparin) 5,000 units SC Q8 [facility]; Protocol Last Admin: 04/04/18 05:16 Dose: Not Given Sodium Chloride (Sodium Chloride 0.9%) 1,000 mls @ 100 mls/hr IV .Q10H [facility] Last Admin: 04/04/18 05:16 Dose: Not Given Metronidazole (Flagyl) 500 mg in 100 mls @ 100 mls/hr IVPB Q8 [facility]; Protocol Last Admin: 04/04/18 05:00 Dose: 100 mls/hr Losartan Potassium (Cozaar) 100 mg PO DAILY [facility] Last Admin: 04/04/18 09:37 Dose: Not Given Nitroglycerin (Nitro-Bid 2% Oint) 1 ea TOP Q4 PRN PRN Reason: Hypertension Ondansetron HCl (Zofran Inj) 4 mg IVP Q4H PRN PRN Reason: Nausea/Vomiting Last Admin: 04/03/18 18:11 Dose: 4 mg Pantoprazole Sodium (Protonix Inj) 40 mg IVP DAILY [facility] Last Admin: 04/04/18 09:38 Dose: 40 mg - Labs Labs: 04/04/18 06:10 04/04/18 06:10 PT 11.9 SECONDS (9.4-12.5) 04/03/18 10:45 INR 1.03 04/03/18 10:45 APTT 26.7 Seconds (25.1-36.5) 04/03/18 10:45 - Constitutional Appears: Non-toxic, No Acute Distress - Head Exam Head Exam: ATRAUMATIC, NORMOCEPHALIC - Eye Exam Eye Exam: EOMI, Normal appearance - ENT Exam ENT Exam: Mucous Membranes Moist - Respiratory Exam Respiratory Exam: NORMAL BREATHING PATTERN. absent: Respiratory Distress - Cardiovascular Exam Cardiovascular Exam: REGULAR RHYTHM. absent: Tachycardia - GI/Abdominal Exam GI & Abdominal Exam: Soft. absent: Distended, Guarding, Tenderness, Rebound Assessment and Plan - Assessment and Plan (Free Text) Assessment: 67 y/o female w/ enteritis Plan: -clinically patient not obstructed, can perform small bowel series to further r/o obstruction however will have to be postponed until 04/05 due to retained contrast in the abdomen. -ok to start CLD -abx per primary -f/u stool studies -patient seen and examined w/ Dr. Darwin Brennan PGY4
[2018-04-04] MEDS ORDERED: Potassium Chloride 20 mEq/15 ml LIQ UD PO STA (12:25)
[2018-04-04] MEDS ORDERED: Potassium Chloride 20 mEq ER Tab PO ONE (15:15)
--- NOTE | 2018-04-04 21:46 | PN ---
DATE: 04/04/2018 SUBJECTIVE: Nabila Pacheco is seen on Wednesday and again today. The history and physical and progress notes are reviewed and agree. They were done under my direction. I personally examined the patient and interviewed the patient. In addition, the abdomen now is completely soft and nontender. The diarrhea is pretty much resolved. GI has been consulted. No results are back. From my point of view, this is not obstruction. The CAT scan did not show obstruction and hopefully, the patient can be rapidly progressed and send home. Chong Granados MD
[2018-04-05] MEDS: metroNIDAZOLE IV 500 mg/100 ml 500 MG/100 ML BAG IVPB SCH ×2 (05:46→15:32)
[2018-04-05] MEDS: Sodium Chloride 0.9% 1,000 ML IV SCH (05:52)
[2018-04-05 06:50] LABS: BASO # 0.01 K/mm3 (0.0-2.0); BASO % 0.2 % (0.0-3.0); EOS # 0.2 (0.0-0.7); EOS % 3.4 % (1.5-5.0); GRAN # 2.85 (1.4-6.5); HEMOGLOBIN 11.8 g/dL (12.0-16.0); LYMPH # 2.1 (1.2-3.4); LYMPH % 38.2 % (22.0-35.0); MEAN CELL VOLUME 91.6 fl (80.0-105.0); MEAN CORPUSCULAR HEMOGLOBIN 29.3 pg (25.0-35.0); MONO # 0.4 (0.1-0.6); MONO % 7.2 % (1.0-6.0); RBC 4.03 10^6/uL (3.5-6.1); RED CELL DISTRIBUTION WIDTH 13.2 % (11.5-14.5); WHITE BLOOD COUNT 5.6 10^3/ul (4.5-11.0)
[2018-04-05 07:21] LABS: ALB/GLOB RATIO 1.2 (1.1-1.8); ALBUMIN 3.4 g/dL (3.0-4.8); ALT/SGPT 31 U/L (7-56); AST/SGOT 21 U/L (14-36); BLOOD UREA NITROGEN 9 mg/dL (7-21); CALCIUM 9.1 mg/dL (8.4-10.5); GFR NON-AFRICAN AMERICAN > 60
--- NOTE | 2018-04-05 08:18 | CP.PCM.PN ---
Subjective - Date & Time of Evaluation Date of Evaluation: 04/05/18 Time of Evaluation: 08:15 - Subjective Subjective: Alfonso Avina, PGY-1, Surgery Progress Note for Dr. Granados Patient seen and examined at bedside. Overnight, patient had abdominal pain was given morphine, which helped resolve the pain. Today, patient continues to complain of both abdominal and back pain. Patient denies any other symptoms at this time, such as chest pain, shortness of breath, nausea, vomiting, dysuria, hematuria. Objective - Vital Signs/Intake and Output Vital Signs (last 24 hours): Temp Pulse Resp BP Pulse Ox 97.9 F 70 19 140/74 98 04/04/18 15:52 04/04/18 15:52 04/04/18 15:52 04/04/18 15:52 04/04/18 15:52 Intake and Output: 04/05/18 04/05/18 06:59 18:59 Intake Total 3780 Balance 3780 - Medications Medications: Current Medications Acetaminophen (Tylenol 325mg Tab) 650 mg PO Q6H PRN PRN Reason: Headache Last Admin: 04/03/18 16:47 Dose: 650 mg Heparin Sodium (Porcine) (Heparin) 5,000 units SC Q8 [facility]; Protocol Last Admin: 04/05/18 05:47 Dose: 5,000 units Sodium Chloride (Sodium Chloride 0.9%) 1,000 mls @ 100 mls/hr IV .Q10H [facility] Last Admin: 04/05/18 05:52 Dose: 100 mls/hr Metronidazole (Flagyl) 500 mg in 100 mls @ 100 mls/hr IVPB Q8 [facility]; Protocol Last Admin: 04/05/18 05:46 Dose: 100 mls/hr Losartan Potassium (Cozaar) 100 mg PO DAILY [facility] Last Admin: 04/04/18 20:43 Dose: 100 mg Meclizine HCl (Antivert) 12.5 mg PO Q8 [facility] Last Admin: 04/05/18 05:45 Dose: 12.5 mg Nitroglycerin (Nitro-Bid 2% Oint) 1 ea TOP Q4 PRN PRN Reason: Hypertension Ondansetron HCl (Zofran Inj) 4 mg IVP Q6H PRN PRN Reason: Nausea/Vomiting Pantoprazole Sodium (Protonix Inj) 40 mg IVP DAILY [facility] Last Admin: 04/04/18 09:38 Dose: 40 mg - Labs Labs: 04/05/18 06:30 04/05/18 06:30 PT 11.9 SECONDS (9.4-12.5) 04/03/18 10:45 INR 1.03 04/03/18 10:45 APTT 26.7 Seconds (25.1-36.5) 04/03/18 10:45 - Constitutional Appears: Well, Non-toxic, No Acute Distress - Head Exam Head Exam: ATRAUMATIC, NORMAL INSPECTION, NORMOCEPHALIC - Eye Exam Eye Exam: EOMI Pupil Exam: PERRL - Neck Exam Neck Exam: Full ROM - Respiratory Exam Respiratory Exam: Clear to Ausculation Bilateral, NORMAL BREATHING PATTERN - Cardiovascular Exam Cardiovascular Exam: REGULAR RHYTHM - GI/Abdominal Exam GI & Abdominal Exam: Soft, Tenderness - Extremities Exam Extremities Exam: Full ROM - Neurological Exam Neurological Exam: Alert, Awake, CN II-XII Intact, Oriented x3 Assessment and Plan - Assessment and Plan (Free Text) Assessment: 67 year old female with past medical history of hypertension and asthma resents with partial small bowel obstruction and is clinically improving. Plan: Start patient on regular diet today. If patient tolerates diet, patient can be cleared for discharge pending any other complaints. Patient should be discharged with a 7-10 day course of antibiotics of ciprofloxa zeke and flagyl. Will discuss case with Dr. Granados.
--- NOTE | 2018-04-05 08:26 | PN ---
DATE: 04/04/2018 SUBJECTIVE: This 67-year-old female was examined at her bedside on the cardiac unit on the afternoon of 04/04/2018. This case was reviewed with herself as well as nurse, Ron Lin, registered nurse and Dr. Chong Granados from Surgery. The patient has been cleared for clear liquid diet. She is noted to be hypokalemic, status post her diarrhea and vomiting yesterday. Of note, she denies any fever, chills, chest pain or shortness of breath and states that after she received a dose of morphine for her abdominal pain, experienced severe vertigo. She then felt nauseous, had an episode of vomiting and still feels dizzy. She denied chest pain, fever, chills or shortness of breath. PHYSICAL EXAMINATION: VITAL SIGNS: Her temperature was 97.9, respirations 19, pulse 70 and blood pressure 140/74 with a pulse ox of 98% on room air. HEAD: Normocephalic, atraumatic. EYES: No icterus. EARS: Clear. THROAT: Noninjected. NECK: Supple. HEART: Regular S1, S2. LUNGS: Clear. ABDOMEN: Obese, nontender. No rebound, no guarding. No CVA tenderness. EXTREMITIES: No edema. SKIN: Without rash. NEUROLOGICAL: Intact. She is experiencing vertigo. VASCULAR: Legs warm to touch. PSYCHOLOGICAL: Alert and oriented x3. LABORATORY DATA: Sodium 141, K 3.4, chloride 110, bicarb 23, BUN 14, creatinine 0.7, random blood sugar was 92. All liver function testing was normal including bilirubin 0.3, AST 18, ALT 23, and alk phos 64. Her white count was 4800, hemoglobin 11.7, hematocrit 37.2 with platelets of 137,000. Her urine culture shows no growth. IMPRESSION: A 67-year-old female admitted with small bowel obstruction with a history of hysterectomy in her past and comorbidities of chronic hypertension and obesity, now being followed by Dr. Chong Granados from Surgery and Dr. Murphy Peterson from GI. PLAN: Is to replace her potassium with K-Dur 20 mEq p.o. stat and to give the patient Antivert 25 mg p.o. stat for her vertigo and to order Antivert 12.5 mg p.o. every 8 hours p.r.n. persistent vertigo as well as Zofran 4 mg IV every 8 hours p.r.n. nausea and vomiting. She will continue on Cozaar 100 mg p.o. daily, Flagyl 500 mg IV every 8, heparin 5000 units subcu every 8, nitroglycerin 1 inch to chest wall every 4 hours p.r.n. accelerated hypertension if systolic blood pressure should be greater than 160 or diastolic blood pressure should be greater than 100, Protonix 40 mg IV daily, 0.9 saline 100 mL IV hourly and heart-healthy soft bland diet will be decided when cleared by Surgery and Gastroenterology. The patient has been encouraged to ambulate with assistance and will continue on antiembolism sequential stockings until fully ambulatory. I have requested repeat laboratories for the a.m. including comprehensive metabolic panel and CBC. She will continue on IV fluids and greater than 35 minutes was spent in the care, review of labs, orders, outlining of medication and reviewing x-rays, discussing this patient with Social Service, Case Management, Nursing and herself. All questions were answered. Amber Nichole MD [email or web address]
[2018-04-05 08:42] VITALS: BP 159/81; PULSE 72; RESP 20; TEMP 98.4; O2SAT 95
--- NOTE | 2018-04-05 08:56 | HP ---
DATE OF EXAM: 04/03/2018 HISTORY OF PRESENT ILLNESS: This 67-year-old female was examined on the cardiac scruggs at the [facility] on the afternoon of 04/03/2018. She presented to [facility] ER earlier this morning with a chief complaint of abdominal pain. She states that on Wednesday evening, she experienced right sided lower abdominal pain that was intense in nature. It became worse over night. She experienced nonbloody diarrhea, nausea, vomiting and came to the [facility] ER for further evaluation of the above. There, she underwent a CT of abdomen and pelvis with IV contrast only, this was reviewed. It showed evidence of prior hysterectomy and an early incomplete small bowel obstruction. There were dilated loops of small bowel identified in the pelvis beyond the distal and terminal ileum. As a result, consultations with Dr. Chong Granados from Surgery and Dr. Murphy Peterson from GI have been requested. The patient at present remains n.p.o. and is receiving IV fluids. PAST MEDICAL HISTORY: Significant for chronic hypertension, hysterectomy. ALLERGIES: THE PATIENT ADMITS TO ALLERGY TO PENICILLIN. SOCIAL HISTORY: She is a nondrinker, nonsmoker, non IV drug misuser. She is a retired homemaker. FAMILY HISTORY: Noncontributory. REVIEW OF SYSTEMS: Constitutional review: She denied any fever or chills. Head review: No headache or seizure. Eye review: No change in visual acuity. Ear review: No hearing loss. Throat review: No swallowing difficulty. Neck review: No stiffness. Cardiac review: Chronic hypertension. She denied chest pain or palpitation. Pulmonary: No cough, no hemoptysis. GI: As per HPI, now with a small bowel obstruction. : No dysuria. Skin: No rash. Vascular: No claudication. Psychological: No depression. Neurological: No stroke. Gynecological: History of hysterectomy. The patient states ovaries are still present. PHYSICAL EXAMINATION: VITAL SIGNS: At the time of my interview, the patient was in a normal sinus rhythm on the lunchroom monitor. Temperature 98.8, respirations 20, pulse 88 and blood pressure 173/80 with a pulse ox of 97% room air. HEAD: Normocephalic, atraumatic. EYES: No icterus. EARS: Clear. THROAT: Noninjected. NECK: Supple. HEART: Was regular S1, S2. No pathological rubs, murmurs or gallops. LUNGS: Clear. ABDOMEN: Obese. No rebound, no guarding. There was some tenderness on palpation of the right lower quadrant. There was no McBurney point tenderness, nor rebound. Bowel sounds were present. EXTREMITIES: No edema. SKIN: Without rash. NEUROLOGICAL: Intact. PSYCHOLOGICAL: Alert. VASCULAR: Legs warm to touch. LABORATORY DATA: White count 8400, hemoglobin 14.5, hematocrit 44.3, platelets 212,000. PT/INR 1.03, PTT 26.7. Sodium 144, K 3.9, chloride 111, bicarb 23, BUN 20, creatinine 0.6, random blood sugar 117, calcium 9.1, bilirubin 0.4, AST 18, ALT 24, alk phos 71. CPK 44. Troponin less than 0.01. Amylase 70, lipase 72. Urinalysis; small bacteria. IMPRESSION: A 67-year-old female with small bowel obstruction, history of hysterectomy in her past, also with nausea, vomiting, diarrhea, persistent abdominal pain and history of hypertension. PLAN: My plans are to maintain this patient on the cardiac unit. Consultations with Dr. Granados from Surgery and Dr. Murphy Peterson from Gastroenterology have been requested. She will have a repeat comprehensive metabolic panel and CBC in the a.m. She is ordered to have stool cultures, C and S and ova and parasites as well as stool for C. diff toxin. She remains n.p.o. She is ordered to have antiembolism sequential compression device stockings. She will be ordered to receive Zofran 4 mg IV every 6 hours p.r.n. nausea and vomiting, Tylenol 650 p.o. every 6 hours p.r.n. pain or temperature greater than 101, 0.9 saline at 100 mL/hour, Protonix 40 mg IV daily, nitroglycerin 1 inch to chest wall every 4 hours p.r.n. accelerated hypertension if systolic blood pressure should be greater than 160 or diastolic blood pressure should be greater than 100. She will receive heparin 5000 units subcu every 8, Flagyl 500 mg IV every 8, Cozaar 100 mg p.o. daily and additional diagnostic testing and workup will be entertained based on her clinical progress and consultants' recommendations. Greater than 75 minutes was spent in the care management, review of labs, x-rays, orders, EKGs and outlining of orders for this patient today as well as discussion of her case with herself and nurse, Margie Gaines, registered nurse. All questions were answered. Amber Nichole MD [facility]
--- NOTE | 2018-04-05 11:16 | CP.PCM.PN ---
<Semaj Parker - Last Filed: 04/05/18 11:11> Subjective - Date & Time of Evaluation Date of Evaluation: 04/05/18 Time of Evaluation: 11:11 - Subjective Subjective: PGY-2 GI progress note for Dr Peterson No acute events noted overnight. Stated her abdominal pain had improved significantly as well as her nausea. She tolerated her liquid diet this morning without issues. She reports flatus but denies bowel movement overnight. Did not offer any other complaints. Objective - Vital Signs/Intake and Output Vital Signs (last 24 hours): Temp Pulse Resp BP Pulse Ox 98.4 F 72 20 159/81 H 95 04/05/18 08:41 04/05/18 08:41 04/05/18 08:41 04/05/18 08:41 04/05/18 08:41 Intake and Output: 04/05/18 04/05/18 06:59 18:59 Intake Total 3780 Balance 3780 - Medications Medications: Current Medications Acetaminophen (Tylenol 325mg Tab) 650 mg PO Q6H PRN PRN Reason: Headache Last Admin: 04/03/18 16:47 Dose: 650 mg Heparin Sodium (Porcine) (Heparin) 5,000 units SC Q8 ZUNILDA; Protocol Last Admin: 04/05/18 05:47 Dose: 5,000 units Sodium Chloride (Sodium Chloride 0.9%) 1,000 mls @ 100 mls/hr IV .Q10H ZUNILDA Last Admin: 04/05/18 05:52 Dose: 100 mls/hr Metronidazole (Flagyl) 500 mg in 100 mls @ 100 mls/hr IVPB Q8 ZUNILDA; Protocol Last Admin: 04/05/18 05:46 Dose: 100 mls/hr Losartan Potassium (Cozaar) 100 mg PO DAILY [facility] Last Admin: 04/05/18 10:07 Dose: Not Given Meclizine HCl (Antivert) 12.5 mg PO Q8 [facility] Last Admin: 04/05/18 05:45 Dose: 12.5 mg Nitroglycerin (Nitro-Bid 2% Oint) 1 ea TOP Q4 PRN PRN Reason: Hypertension Ondansetron HCl (Zofran Inj) 4 mg IVP Q6H PRN PRN Reason: Nausea/Vomiting Pantoprazole Sodium (Protonix Inj) 40 mg IVP DAILY [facility] Last Admin: 04/05/18 09:54 Dose: 40 mg - Labs Labs: 04/05/18 06:30 04/05/18 06:30 PT 11.9 SECONDS (9.4-12.5) 04/03/18 10:45 INR 1.03 04/03/18 10:45 APTT 26.7 Seconds (25.1-36.5) 04/03/18 10:45 - Additional Findings Additional findings: - Constitutional Appears: Well, No Acute Distress - Head Exam Head Exam: ATRAUMATIC, NORMAL INSPECTION - Eye Exam Eye Exam: EOMI, Normal appearance, PERRL - ENT Exam ENT Exam: Mucous Membranes Moist - Neck Exam Neck exam: Positive for: Normal Inspection - Respiratory Exam Respiratory Exam: Clear to Auscultation Bilateral, NORMAL BREATHING PATTERN. absent: Rales, Rhonchi, Wheezes - Cardiovascular Exam Cardiovascular Exam: REGULAR RHYTHM, +S1, +S2. absent: Tachycardia, JVD, Systolic Murmur - GI/Abdominal Exam GI & Abdominal Exam: Hyperactive Bowel Sounds, Soft. absent: Distended, Firm, Guarding, Rebound, Tenderness - Neurological Exam Neurological exam: Alert, Oriented x3 - Psychiatric Exam Psychiatric exam: Normal Affect, Normal Mood - Skin Skin Exam: Normal Color, Warm Assessment and Plan - Assessment and Plan (Free Text) Plan: 67 year old female with a PMHx of HTN and asthma admitted for early small bowel obstruction: Small Bowel Obstruction -vs enteritis (patient recently in [place] and returned 6 days ago) -SBO 2/2 to adhesions from remote hysterectomy? -overall this patient is clinically improving -CT abd/pelvis w/ iv contrast: * Early/incomplete small bowel obstruction suspected. Dilated loops of small bowel identified in the pelvis beyond this the distal and terminal ileum are normal luminal caliber. * Per Dr Peterson's read - transition point suspected on series 3 image 92 -Gen Surgery on board, Dr Granados * believes SBO less likely and enteritis more likely * Advanced diet to soft, low residue diet for lunch today * if clinically warranted can perform small bowel series to further r/o obstruction however will have to be postponed until 04/05 due to retained contrast in the abdomen -Agree with IVF and pain control and zofran for nausea -Agree with flagyl 500mg ivpb q8h - patient should complete her abx course upon discharge -Can consider NGT if patient has emesis -F/U stool studies -If symptoms worsen can consider CT abdomen with PO contrast Dispo: If she tolerates soft/low residue diet for lunch and dinner then can consider discharge. Patient will need to follow up with a GI doctor outpatient - this was relayed to her and she understood. Case discussed with Dr Peterson. <Murphy Peterson V - Last Filed: 04/06/18 00:09> Objective - Vital Signs/Intake and Output Vital Signs (last 24 hours): Temp Pulse Resp BP Pulse Ox 98.4 F 72 20 159/81 H 95 04/05/18 08:41 04/05/18 08:41 04/05/18 08:41 04/05/18 08:41 04/05/18 08:41 - Labs Labs: 04/05/18 06:30 04/05/18 06:30 PT 11.9 SECONDS (9.4-12.5) 04/03/18 10:45 INR 1.03 04/03/18 10:45 APTT 26.7 Seconds (25.1-36.5) 04/03/18 10:45 Attending/Attestation - Attestation I have personally seen and examined this patient.: Yes I have fully participated in the care of the patient.: Yes I have reviewed all pertinent clinical information, including history, physical exam and plan: Yes Notes (Text): This is an addendum to GI followup report dictated by the Construction Supervisor/Carpenter. The patient was seen and evaluated earlier. Medical records, lab studies, imagings were reviewed. Last 24 hours events reviewed. Agreed with the above treatment plan as outlined in Construction Supervisor/Carpenter 's notes with the addition of the following 04/06/18 00:09
--- NOTE | 2018-04-06 11:13 | DS ---
HISTORY OF PRESENT ILLNESS: This 67-year-old female was cleared for discharge on the afternoon of 04/05/2018. The patient was examined and discharge instructions were reviewed with her nurse, Iris Montes, registered nurse. DISCHARGE DIAGNOSES: Include small bowel obstruction, resolved; chronic hypertension; history of partial hysterectomy. DISPOSITION: Home. Follow up in my office on 04/11/2018. DISCHARGE DIET: 2 g sodium, heart-healthy, soft bland. DISCHARGE MEDICATIONS: Include Cozaar 100 mg p.o. b.i.d. SUMMARY: This 67-year-old female presented to [facility] ER with nausea, abdominal pain and was noted on abdominopelvic CT to have a early small bowel obstruction with dilated loops of small bowel, identified in the pelvis beyond the distal and terminal ileum. The patient was admitted, made n.p.o., given IV fluids, IV Flagyl and was seen in consultation by Dr. Chong Granados from Surgery and Dr. Murphy Peterson from GI. The patient's clinical symptomatology improved with conservative therapy. She was able to tolerate a soft bland heart-healthy diet. She had a bowel movement and there was no further nausea or vomiting noted. At the time of discharge, vital signs were temperature 98.4, respirations 20, pulse 72 and blood pressure 140/74 with a pulse ox of 98% on room air. Discharge labs showed white count 5600, hemoglobin 11.8, hematocrit 36.9, platelets 140,000. Sodium 142, K 3.9, chloride 109, bicarb 27, BUN 9, creatinine 0.7, random blood sugar 92. Calcium 9.1, phosphorus 2.7, magnesium 2.0, bilirubin 0.3, AST 21, ALT 31 and alk phos 59. Amylase 70 and lipase 72 normal. Microbiology of urine showed no growth. The patient was discharged to home. She was given one dose of lactulose 30 g p.o. and had a formed bowel movement and was advised for any change in signs and symptoms to present directly to [facility]. All of the above was reviewed with the patient at bedside with nurse, Iris Montes present. Greater than 35 minutes was spent in the care management, review of labs, orders, x-rays and discussion for clearances with GI and Surgery. All questions were answered. Amber Nichole MD [facility] # [id number] JA
== END 2018-04-05 18:15 | disposition home or self-care (01) | DRG 390 ==
LOC: ED 09:57 → ERH 13:11 → 3RSO 15:07
PROVIDERS: ADMIT Internal Medicine; ATTEND Internal Medicine
DX: K56.600 Partial intestinal obstruction, unspecified as to cause (principal); I10 Essential (primary) hypertension; K52.9 Noninfective gastroenteritis and colitis, unspecified; J45.909 Unspecified asthma, uncomplicated; E87.6 Hypokalemia; Z90.710 Acquired absence of both cervix and uterus; Z88.0 Allergy status to penicillin

== ENCOUNTER 2018-07-12 14:09 | Outpatient (CLI) | payer MEDICARE | END 2018-07-12 14:10 | disposition home or self-care (01) | LOC: RAD 14:09 ==

== ENCOUNTER 2018-08-16 13:26 | Outpatient (CLI) | payer MEDICARE | END 2018-08-16 13:27 | disposition home or self-care (01) | LOC: RAD 13:26 ==

== ENCOUNTER 2018-08-24 08:00 | Outpatient (CLI) | payer MEDICARE | END 2018-08-25 07:07 | disposition home or self-care (01) | LOC: RAD 08:00 ==